=== PATIENT | male | born 1955 | race Caucasian/White ===

== ENCOUNTER 2021-04-06 18:58 | Emergency (ER) | payer MEDICARE, SELFPAY ==
[2021-04-06] VITALS (18 sets, daily range): BP systolic 133–195; BP diastolic 76–102; PULSE 68–100; RESP 15–26; TEMP 36.6–36.8; O2SAT 92–100
--- NOTE | ~2021-04-06 | CT_ITS ---
EXAMINATION: CTA chest PE protocol EXAM DATE: 04/06/2021 23:25 INDICATION: Dyspnea. TECHNIQUE: Spiral CTA of the chest (pulmonary arteries) was performed with 100 cc Omnipaque 350 intr avenous contrast injection. Images were acquired during the pulmonary arterial phase. Coronal maxi mum intensity projection 3D-reconstructions were created by the technologist on dedicated workstation . Axial, coronal and sagittal reformatted images were reviewed. The dose-length product (DLP) for t his examination was 261.76 mGy-cm. The exposure was tailored according to patient size (auto mA exp osure control), and iterative reconstruction (ASIR) was used as additional dose reduction technique. There is no prior study for comparison. FINDINGS: Pulmonary arteries are well opacified and without intraluminal filling defects. No thora cic aortic dissection. Lingular subsegmental atelectasis. Moderate hyperinflation. There are no ple ural or pericardial effusions. Tracheobronchial tree is patent. There is no mediastinal, hilar or axillary lymphadenopathy. There is no pneumothorax. Heart normal in size. No evidence of coron dania arterial calcification. Upper abdomen is unremarkable. There is thoracic spondylosis without o steoblastic or osteolytic lesions identified. IMPRESSION: 1. No pulmonary emboli. 2. Lingular subsegmental atelectasis. 3. Moderate hyperinflation. Reviewed, dictated and finalized at location G.
--- NOTE | ~2021-04-06 | XR_ITS ---
EXAMINATION: XR chest 2V EXAM DATE: 04/06/2021 19:55 INDICATION: Shortness of breath. TECHNIQUE: Frontal and lateral projections of the chest obtained and reviewed. There is no prior elder dy for comparison. FINDINGS: The lungs are hyperinflated which can be seen with chronic obstructive pulmonary disease (a clinical diagnosis of functional impairment), but is not diagnostic of it. A few scattered lung gran ulomata. The lungs are otherwise clear. There are no pleural effusions. The cardiomediastinal silho uette is within normal limits. There is no pneumothorax suspected. The bones and soft tissues are u nremarkable. IMPRESSION: 1. No acute cardiopulmonary findings. 2. Hyperinflation. Reviewed, dictated and finalized at location A.
--- NOTE | 2021-04-06 19:19 | ECG_ITS ---
Measurements Intervals [place] Rate: 82 P: 80 [place]: 148 QRS: 76 QRSD: 86 T: 76 QT: 360 QTc: 421 Interpretive Statements SINUS RHYTHM POSSIBLE LEFT ATRIAL ENLARGEMENT BORDERLINE ST-T WAVE ABNORMALITY- INF/LAT LEADS BASELINE ARTIFACT- I, II, III, AVR, AVL, AVF, V4-V6 BORDERLINE ECG Electronically Signed On 04-07-2021 6:57:52 CDT by Kamron Omalley D.O.
[2021-04-06 19:35] LABS: Basophils Absolute Auto 0.1 K/mm3 (0.0-0.1); Basophils Percent Auto 0.8 % (0.2-1.2); Eosinophils Absolute Auto 0.4 K/mm3 (0-0.3); Eosinophils Percent Auto 3.3 % (0-4.4); Hematocrit 50.7 % (42.0-52.0); Hemoglobin 17.6 g/dL (14.0-18.0); Immature Granulocyte Absolute 0.03 K/mm3 (0.00-0.031); Immature Granulocyte Percent A 0.3 % (0-0.5); Lymphocytes Percent Auto 19.5 % (18.3-44.2); Mean Corpuscular HGB Conc 34.7 g/dl (32-36); Mean Corpuscular Hemoglobin 34.6 pg (26-34); Mean Corpuscular Volume 99.8 fl (80-100); Mean Platelet Volume 9.5 fl (7.4-10.4); Monocytes Absolute Auto 0.9 K/mm3 (0.1-0.6); Monocytes Percent Auto 7.9 % (2.6-8.5); Neutrophils Absolute Auto 8.1 K/mm3 (1.3-6.7); Neutrophils Percent Auto 68.2 % (45.5-73.1); Platelet Count Result 221 k/mm3 (150-375); Red Blood Count 5.08 M/mm3 (4.6-6.20); Red Cell Distribution Width 11.9 % (11.5-14.5); White Blood Count 11.8 K/mm3 (4.5-10.0)
[2021-04-06 19:38] LABS: Anion Gap 5 mmol/L (8-16); Blood Urea Nitrogen 18 mg/dL (9-20); Calcium 9.2 mg/dL (8.4-10.2); Carbon Dioxide 26 mmol/L (22-30); Chloride 109 mmol/L (98-107); Estimated CRCL calculation 42 ml/min; Estimated Glomerular Filt Rate 55; Glucose 93 mg/dL (75-110); Potassium 4.2 mmol/L (3.4-5.0); Sodium 140 mmol/L (137-145)
--- NOTE | 2021-04-06 21:15 | ED.SOB ---
HPI - SOB/Dyspnea General Chief Complaint: Shortness of Breath/Dyspnea Stated Complaint: shortness of breath Time Seen by Provider: 04/06/21 21:13 Source: patient and family Mode of arrival: ambulatory Limitations: no limitations History of Present Illness HPI Narrative: Patient is a 65-year-old male with history of hypertension who presents from an urgent care for evaluation of difficulty breathing and elevated blood pressure. Patient states that he began feeling increasingly short of breath this afternoon. He denies any chest pain. He reports mildly productive cough without hemoptysis. No pleuritic pain. No leg swelling. No fever or chills, he does report sinus congestion and rhinorrhea. No history of Covid, states that he has had a runny nose and mildly sore throat. No recent sick contacts. Patient completed vaccination series February 05. No history of COPD or asthma, but is a 1-1/2 pack/day smoker. No previous history of this. Pt states in the past he was taking lisinopril for his hypertension but developed a cough and stopped that medication several months ago. Patient and have relocated to this area from [place]. Have not established with a PCP. Related Data Allergies Allergy/AdvReac Type Severity Reaction Status Date / Time No Known Allergies Allergy Verified 04/06/21 22:06 Review of Systems Review of Systems: Narrative: CONSTITUTIONAL: Denies fever, chills, or sweats. EYES: Denies visual changes, redness, or discharge. ENT: Reports rhinorrhea, congestion, sore throat CARDIOVASCULAR: Denies chest pain, palpitations, or edema. RESPIRATORY: Reports cough and dyspnea GASTROINTESTINAL: Denies abdominal pain, nausea, vomiting, or diarrhea. GENITOURINARY: Denies dysuria or hematuria. SKIN: Denies rash or itching. MUSCULOSKELETAL: Denies back pain, joint pain, or myalgia. NEUROLOGIC: Denies headache, numbness, or weakness. [facility] Social History Social History (Updated 04/06/21 @ 21:43 by Laly Zuniga MD) Smoking status: Current every day smoker Tobacco type: cigarettes Alcohol intake: never Substance use: never Living arrangements: with family Gender identity (if verbalized by the patient): Male Exam Narrative: Exam Narrative: GENERAL: Awake, alert, conversant HEAD: Normocephalic, atraumatic. EYES: PERRLA and EOMI. ENT: Nares clear, no rhinorrhea or epistaxis. Mucous membranes moist. NECK: Supple. CHEST: Use of accessory muscles to breathe, coarse breath sounds, decreased lung sounds at the bases, no crackles HEART: Borderline tachycardic rate, sinus rhythm ABDOMEN:Non distended, non tender EXTREMITIES: Normal range of motion. No edema. No calf tenderness. SKIN: Warm, dry, no rash. NEURO:No focal deficits. Alert and oriented x3 Course Vital Signs Vital signs: Vital Signs Temperature 36.6 C 04/06/21 19:16 Pulse Rate 87 04/06/21 19:16 Respiratory Rate 22 H 04/06/21 19:16 Blood Pressure 133/76 04/06/21 19:16 Pulse Oximetry 95 04/06/21 19:16 Temperature 36.8 C 04/06/21 21:33 Pulse Rate 86 04/06/21 23:32 Respiratory Rate 19 04/06/21 23:32 Blood Pressure 158/81 H 04/06/21 23:24 Pulse Oximetry 93 04/06/21 23:32 MDM - SOB/Dyspnea MDM Narrative Medical decision making narrative: Patient presented for evaluation of shortness of breath from an urgent care. Noted to have elevated blood pressure at the urgent care and was referred to this facility. At the time of assessment, vital signs are stable. EKG shows borderline ST depression in the anterior leads V5, V6 without reciprocal changes or evidence of ST elevation. Patient is not having any chest pain, nausea or other anginal type symptoms. He is a heavy smoker without a formal diagnosis of COPD but does have a history of hypertension and has been off of his medications for several months. Blood pressure here is actually not terribly elevated. No audible wheezing but decreased aeration in the bases on au
[2021-04-06] MEDS: ALBUTEROL SULFATE NEB 2.5 MG/0.5 ML INH 10 MG INHALATION (21:50)
[2021-04-06] MEDS: IPRATROPIUM BR 0.02% INH SOLN 0.5 MG/2.5 ML VIAL 2 MG INHALATION (21:50)
[2021-04-06] MEDS: SODIUM CHLORIDE 0.9% IV 1,000 ML 999 ML IV CONT (22:07)
[2021-04-06] MEDS: methylPREDNISolone SOD SUCC 125 MG VIAL IV PUSH (22:07)
[2021-04-06] MEDS: MAGNESIUM SULF 2 GM/WATER 50ML 2 GM/50 ML BAG IVPB (22:18)
[2021-04-06 22:20] LABS: INR 0.9; Lactic Acid Reflex 0.7 mmol/L (0.7-2.1); Prothrombin Time 12.9 Seconds (11.1-14.7)
[2021-04-06 22:21] LABS: Partial Thromboplastin Time 32.7 SECONDS (22.3-36.8)
[2021-04-06] MEDS: NITROGLYCERIN SL 0.4 MG TABLET SUBLINGUAL (22:30)
[2021-04-06 22:33] LABS: NT Pro B Type Natriuretic Pept 82 pg/mL (5-100); Troponin I < 0.012 ng/mL (0.000-0.034)
[2021-04-07 00:41] VITALS: BP 160/80; PULSE 87; RESP 22; O2SAT 95
[2021-04-07 18:55] LABS: SARS-CoV-2 RNA PCR Negative
== END 2021-04-07 00:41 | disposition home or self-care (01) ==
PROVIDERS: Emergency Medicine; Emergency Provider Emergency Medicine
DX: J44.1 Chronic obstructive pulmonary disease with (acute) exacerbation (principal); Z20.822 Contact with and (suspected) exposure to COVID-19; F17.210 Nicotine dependence, cigarettes, uncomplicated; R94.31 Abnormal electrocardiogram [ECG] [EKG]
CPT/HCPCS: 36415; 71046; 71275; 80048; 83605; 83880; 84484; 85025; 85610; 85730; 87040; 93005; 94640; 96365; 96375; 99284; A9270; C9803; J2930; J3475; J7030; Q9967; U0003; U0005

== ENCOUNTER → 2022-05-18 10:54 | Outpatient (CLI) | payer MEDICARE, SELFPAY ==
--- NOTE | ~2022-05-18 | XR_ITS ---
XR chest 2V DATE: 05/18/2022 11:35 INDICATION: Dry cough for 3 months. Smoker. TECHNIQUE: 2 views COMPARISON: 04/06/[address] pulmonary scan FINDINGS: Normal heart size. There is aortic tortuosity. No hilar or mediastinal enlargement. Bilateral hyperinflation. No pulmonary infiltrate or consolidation, pleural effusion or pulmonary vas cular congestion or pneumothorax. IMPRESSION: Bilateral hyperinflation; no active cardiopulmonary disease Reviewed, dictated and finalized at location A.
== END ==
PROVIDERS: PCP Emergency Medicine; Visit Provider Emergency Medicine
DX: R05.9 Cough, unspecified (principal); F17.210 Nicotine dependence, cigarettes, uncomplicated; R06.02 Shortness of breath
CPT/HCPCS: 71046

== ENCOUNTER 2024-03-03 11:17 | Emergency (ER) | payer MEDICARE, SELFPAY ==
[2024-03-03 11:26] VITALS: BP 158/70; PULSE 66; RESP 16; TEMP 36.9; O2SAT 99
--- NOTE | 2024-03-03 11:35 | ED.URI ---
HPI - URI/Sore Throat General Chief Complaint: Upper Respiratory Infection Stated Complaint: Sinus Time Seen by Provider: 03/03/24 11:30 Source: patient Mode of arrival: ambulatory Limitations: no limitations History of Present Illness HPI Narrative: Daniel is a 68-year-old male patient presenting to the clinic today with complaints of sinus congestion for the past 3 days. He reports he has a productive cough with some yellow phlegm, nasal congestion and sinus pressure. Denies any fever, chills, or body aches. Denies any increased shortness of breath or chest pain. Does have history of COPD. MD elicited complaint: cough, nasal congestion and sinus pain Related Data Home Medications Medication Instructions Recorded Confirmed albuterol 90 mcg/actuation aerosol See Rx Instructions .Route .COMPLEX 03/03/24 03/03/24 inhaler aspirin 81 mg tablet 81 mg PO DAILY 03/03/24 03/03/24 cetirizine 10 mg tablet 10 mg PO DAILY 03/03/24 03/03/24 losartan 50 mg tablet 50 mg PO DAILY 03/03/24 03/03/24 umeclidinium 62.5 mcg/actuation 1 inh inhalation DAILY 03/03/24 03/03/24 blister powder for inhalation (Incruse Ellipta) Allergies Allergy/AdvReac Type Severity Reaction Status Date / Time No Known Allergies Allergy Verified 03/03/24 11:23 Review of Systems Review of Systems: Pertinent positives per HPI. Patient denies any fever, chills, rash, headache, visual changes, dizziness, shortness of breath, chest pain, palpitations, nausea, vomiting, diarrhea, constipation, abdominal pain, or any urinary issues. PMFSH Social History Social History Smoking status: Current every day smoker Tobacco type: cigarettes Alcohol intake: never Substance use: never Living arrangements: with family Gender identity (if verbalized by the patient): Male Comments At the time of my signature, I reviewed and agree with the nursing past medical, surgical, social, and family history. There is no relevant family history pertinent to the patient complaint. Exam Narrative: General: Well-developed, well nourished, in no apparent distress Head: Normocephalic, atraumatic Eyes: Pupils equally round and reactive to light bilaterally, EOM intact, sclera and conjunctive clear, no discharge, lids normal Ears: TMs intact and clear, ear canals clear, no drainage, grossly hearing normal. Nose: Nares patent clear discharge, moderate swelling to the right turbinates , no sinus tenderness. Mouth: Oral pharynx without lesions or masses, good dentition, MMM. Neck: Supple, trachea midline, no enlargement of anterior or posterior cervical nodes, no thyroid masses or goiter palpable. Cardio: Regular rate and rhythm, s1 and s2 normal, no murmur appreciated. Resp: Clear to auscultation bilaterally, no rhonchi, rales, wheezing or rubs Course Course Emergency Course: Portions of this record may have been created with voice recognition software. Level of Care: Express Care Visit Vital Signs Vital signs: Vital Signs Temperature 36.9 C 03/03/24 11:26 Pulse Rate 66 03/03/24 11:26 Respiratory Rate 16 03/03/24 11:26 Blood Pressure 158/70 H 03/03/24 11:26 Pulse Oximetry 99 03/03/24 11:26 Oxygen Delivery Room Air 03/03/24 11:26 Temperature 36.9 C 03/03/24 11:26 Pulse Rate 66 03/03/24 11:26 Respiratory Rate 16 03/03/24 11:26 Blood Pressure 158/70 H 03/03/24 11:26 Pulse Oximetry 99 03/03/24 11:26 Oxygen Delivery Room Air 03/03/24 11:26 Vital signs reviewed MDM - URI/Sore Throat MDM Narrative Medical decision making narrative: At the time of visit patient is resting comfortably on the exam table. Patient appears to be nontoxic. Plan: I suspect patient has URI. Prescription for prednisone was sent to the pharmacy. Supportive measures were discussed with the patient and they voiced understanding discharge instructions and agrees to treatme
== END 2024-03-03 11:46 | disposition home or self-care (01) ==
PROVIDERS: Emergency Provider Nurse Practitioner Family; PCP Emergency Medicine
DX: J06.9 Acute upper respiratory infection, unspecified (principal); F17.210 Nicotine dependence, cigarettes, uncomplicated; I10 Essential (primary) hypertension; J44.9 Chronic obstructive pulmonary disease, unspecified
CPT/HCPCS: 99213; G0463